=== PATIENT | male | born 1950 | race Caucasian/White ===

== ENCOUNTER 2016-08-14 21:31 | Emergency (ER) | payer OTHER, MEDICARE ==
[~2016-08-14] VITALS: Ht 182.9 cm; Wt 100.0 kg
[~2016-08-14 21:31] MED LIST: ARIC5TAB PO; LEVE500 PO; METF850T PO
[2016-08-14 21:45] VITALS: BP 142/87; PULSE 84; RESP 18; TEMP 98; O2SAT 97
[2016-08-14] MEDS ORDERED: SODIUM CHLORIDE 0.9% FLUSH 10 ML FLUSH IVF PRN (22:00)
[2016-08-14] MEDS ORDERED: DIPHTH/TETANUS/ACEL PERTUSSIS (BOOSTER) 0.5 ML VIAL/PFS IM ONE (22:00)
[2016-08-14] MEDS ORDERED: ceFAZolin 2 GM PREMIX 50 ML IV ONE (22:00)
[2016-08-14] MEDS ORDERED: LIDOCAINE HCL 1% PF 30 ML VIAL INFIL ONE (22:15)
[2016-08-14 22:31] LABS: AUTOMATED NEUTROPHIL # 4.2 TH/MM3 (1.8-7.7); BASOPHIL # 0.1 TH/MM3 (0-0.2); EOSINOPHIL # 0.2 TH/MM3 (0-0.4); EOSINOPHIL % 2.1 % (0.0-4.0); HEMATOCRIT 42.1 % (39.0-51.0); HEMO FLAGS DIFF FINAL; LYMPH % 38.5 % (9.0-44.0); LYMPHOCYTE # 3.2 TH/MM3 (1.0-4.8); MEAN CELL VOLUME 98.2 FL (80.0-100.0); MEAN CORPUSCULAR HGB CONC 35.6 % (32.0-36.0); MONO % 9.1 % (0.0-8.0); NEUT % 49.3 % (16.0-70.0); PLATELET COUNT 322 TH/MM3 (150-450); RED BLOOD COUNT 4.29 MIL/MM3 (4.50-5.90); RED CELL DISTRIBUTION WIDTH 14.4 % (11.6-17.2); WHITE BLOOD COUNT 8.4 TH/MM3 (4.0-11.0)
--- NOTE | 2016-08-14 22:38 | PD ---
HPI Chief Complaint: Head Injury Time Seen by Provider: 21:41 Travel History International Travel<30 days: No Contact w/Intl Traveler<30days: No Traveled to known affect area: No History of Present Illness HPI 66-year-old male came to the emergency room with history of fall after significant intoxication with his . called 911. There was some blood at the scene from his head injury when he fell. Patient was combative at the scene as well as during transportation. Unknown LOC. Patient is not giving any kind of reliable history given his intoxicated state. Vital signs were within acceptable range. He was brought in boarded and collared. FOR[facility]LY [facility] Past Medical History Narrative Medical List of his past medical, surgical, social and family history was reviewed from the nursing note. Dementia: Yes Diabetes: Yes Patient Takes Glucophage: No (UNKNOWN) Diminished Hearing: No Seizures: Yes Tetanus Vaccination: Unknown Influenza Vaccination: No Past Surgical History Surgical History: No Previous Surgery Social History Alcohol Use: Yes (A COUPLE OF GLASSES OF WINE DAILY) Tobacco Use: No Substance Use: No Allergies-Medications (Allergen,Severity, Reaction): Coded Allergies: No Known Allergies (Unverified , 08/18/16) Comments No known drug allergies. Reported Meds & Prescriptions Reported Meds & Active Scripts Active Bacitracin Topical 500 Unit/Gm Oint 1 Applic TOPICAL BID Narrative Medication List of his home medications reviewed from the nursing note. Review of Systems Except as stated in HPI: all other systems reviewed are Neg Physical Exam Narrative GENERAL: Significant intoxication, slurred speech, combative, boarded and collared SKIN: Focused skin assessment warm/dry. HEAD: Large hematoma with some venous oozing on the left parietal protuberance EYES: Pupils equal and round. No scleral icterus. No injection or drainage. ENT: No nasal bleeding or discharge. Mucous membranes pink and moist. NECK: Trachea midline. No JVD. CARDIOVASCULAR: Regular rate and rhythm. No murmur appreciated. RESPIRATORY: No accessory muscle use. Clear to auscultation. Breath sounds equal bilaterally. GASTROINTESTINAL: Abdomen soft, non-tender, nondistended. Hepatic and splenic margins not palpable. MUSCULOSKELETAL: No obvious deformities. No clubbing. No cyanosis. No edema. Patient was rolled off the backboard. No step-offs or contusions. NEUROLOGICAL: Significantly intoxicated. GCS of 14. No obvious cranial nerve deficits. Motor grossly within normal limits. Slurred speech. PSYCHIATRIC: Appropriate mood and affect; insight and judgment normal. Data Data Last Documented VS Vital Signs Date Time Temp Pulse Resp B/P Pulse Ox O2 Delivery O2 Flow Rate FiO2 08/15/16 02:14 78 18 135/80 99 Room Air 08/14/16 21:45 98.0 Orders Basic Metabolic Panel (Bmp) (08/14/16 21:53) Complete Blood Count With Diff (08/14/16 21:53) Prothrombin Time / Inr (Pt) (08/14/16 21:53) Act Partial Throm Time (Ptt) (08/14/16 21:53) Type And Screen (08/14/16 21:53) Alcohol (Ethanol) (08/14/16 21:53) Ct Brain W/O Iv Contrast(Rout) (08/14/16 21:53) Ct Cerv Spine W/O Contrast (08/14/16 21:53) Iv Access Insert/Monitor (08/14/16 21:53) Ecg Monitoring (08/14/16 21:53) Oximetry (08/14/16 21:53) Oxygen Administration (08/14/16 21:53) Cefazolin 2 Gm Premix (Ancef 2 Gm Premix (08/14/16 22:00) Ygji-Tos-Lmclbo (Booster) Inj (Boostrix (08/14/16 22:00) Sodium Chloride 0.9% Flush (Ns Flush) (08/14/16 22:00) Drug Screen, Random Urine (08/14/16 21:53) Lidocaine Pf 1% Inj (Xylocaine-Mpf 1% In (08/14/16 22:15) Electrocardiogram (08/14/16 21:45) Labs Laboratory Tests Test 08/14/16 08/14/16 22:05 23:15 White Blood Count 8.4 TH/MM3 Red Blood Count 4.29 MIL/MM3 Hemoglobin 15.0 GM/DL Hematocrit 42.1 % Mean Corpuscular Volume 98.2 FL Mean Corpuscular Hemoglobin 35.0 PG Mean Corpuscular Hemoglobin 35.6 % Concent Red Cell Distribution Width 14.4 % Platelet Count 322 TH/MM3 Mean Platelet Volume 7.8 FL Neutrophils (%) (Auto) 49.3 % Lymphocytes (%) (Auto) 38.5 % Monocytes (%) (Auto) 9.1 % Eosinophils (%) (Auto) 2.1 % Basophils (%) (Auto) 1.0 % Neutrophils # (Auto) 4.2 TH/MM3 Lymphocytes # (Auto) 3.2 TH/MM3 Monocytes # (Auto) 0.8 TH/MM3 Eosinophils # (Auto) 0.2 TH/MM3 Basophils # (Auto) 0.1 TH/MM3 CBC Comment DIFF FINAL Differential Comment Prothrombin Time 9.7 SEC Prothromb Time International 0.9 RATIO Ratio Activated Partial 28.6 SEC Thromboplast Time Sodium Level 139 MEQ/L Potassium Level 3.8 MEQ/L Chloride Level 102 MEQ/L Carbon Dioxide Level 23.2 MEQ/L Anion Gap 14 MEQ/L Blood Urea Nitrogen 15 MG/DL Creatinine 0.86 MG/DL Estimat Glomerular Filtration 89 ML/MIN Rate Random Glucose 128 MG/DL Calcium Level 9.0 MG/DL Ethyl Alcohol Level 286 MG/DL Blood Type O NEGATIVE Antibody Screen NEGATIVE Blood Bank Comment Urine Opiates Screen NEG Urine Barbiturates Screen NEG Urine Amphetamines Screen NEG Urine Benzodiazepines Screen NEG Urine Cocaine Screen NEG Urine Cannabinoids Screen NEG MDM Medical Decision Making Medical Screen Exam Complete: Yes Emergency Medical Condition: Yes Medical Record Reviewed: Yes Interpretation(s) Twelve-lead EKG was reviewed by me. Normal sinus rhythm, normal axis, nonspecific ST-T wave changes. Heart rate of 81 beats per minute. Differential Diagnosis Intracranial bleed, skull fracture, scalp laceration with contusion, acute alcohol intoxication Narrative Course 10:44 PM the scalp laceration was stapled by the PA. Please refer to his procedure note. Awaiting for the blood test results and the CAT scan to be done and resulted. 12:15 AM CAT scan reports of back and within normal limit. Blood alcohol level is very high. Patient will be here till he is clinically sober to be discharged home. Procedures EKG Prior to Arrival: No Diagnosis Primary Impression: Fall Qualified Code: W19.XXXA - Fall, initial encounter Additional Impressions: Acute alcohol intoxication Qualified Code: F10.929 - Acute alcohol intoxication, with unspecified complication Scalp laceration Qualified Code: S01.01XA - Scalp laceration, initial encounter Head injury Qualified Code: S09.90XA - Head injury, initial encounter Referrals: Primary Care Physician 3 days Additional Instructions: Please return to the ER or to your primary care to get the devika taken out in 5-7 days. Apply the antibiotic ointment on the scalp area until the devika come out. Keep the wound clean and dry for next 48 hours. Be careful when you brush her hair. Drink alcohol in moderation. Med/Other Pt SpecificInfo: Prescription(s) given Scripts Bacitracin Topical 500 Unit/Gm Oint1 Applic TOPICAL BID #30 GM Ref 0 Prov:Migue Johnson MD 08/15/16 Disposition: 01 DISCHARGE HOME Condition: Stable Miuge Johnson MD August 14, 2016 22:38 Migue Johnson MD August 14, 2016 22:38
[2016-08-14 22:43] VITALS: O2SAT 99
--- NOTE | 2016-08-14 22:44 | PD ---
Physical Exam Time Seen by Provider: 22:20 Data Data Last Documented VS Vital Signs Date Time Temp Pulse Resp B/P Pulse Ox O2 Delivery O2 Flow Rate FiO2 08/14/16 21:45 98.0 84 18 142/87 97 Orders Basic Metabolic Panel (Bmp) (08/14/16 21:53) Complete Blood Count With Diff (08/14/16 21:53) Prothrombin Time / Inr (Pt) (08/14/16 21:53) Act Partial Throm Time (Ptt) (08/14/16 21:53) Type And Screen (08/14/16 21:53) Alcohol (Ethanol) (08/14/16 21:53) Ct Brain W/O Iv Contrast(Rout) (08/14/16 21:53) Ct Cerv Spine W/O Contrast (08/14/16 21:53) Iv Access Insert/Monitor (08/14/16 21:53) Ecg Monitoring (08/14/16 21:53) Oximetry (08/14/16 21:53) Oxygen Administration (08/14/16 21:53) Cefazolin 2 Gm Premix (Ancef 2 Gm Premix (08/14/16 22:00) Wavw-Yzb-Prbgho (Booster) Inj (Boostrix (08/14/16 22:00) Sodium Chloride 0.9% Flush (Ns Flush) (08/14/16 22:00) Drug Screen, Random Urine (08/14/16 21:53) Lidocaine Pf 1% Inj (Xylocaine-Mpf 1% In (08/14/16 22:15) Labs Laboratory Tests Test 08/14/16 22:05 White Blood Count 8.4 TH/MM3 Red Blood Count 4.29 MIL/MM3 Hemoglobin 15.0 GM/DL Hematocrit 42.1 % Mean Corpuscular Volume 98.2 FL Mean Corpuscular Hemoglobin 35.0 PG Mean Corpuscular Hemoglobin 35.6 % Concent Red Cell Distribution Width 14.4 % Platelet Count 322 TH/MM3 Mean Platelet Volume 7.8 FL Neutrophils (%) (Auto) 49.3 % Lymphocytes (%) (Auto) 38.5 % Monocytes (%) (Auto) 9.1 % Eosinophils (%) (Auto) 2.1 % Basophils (%) (Auto) 1.0 % Neutrophils # (Auto) 4.2 TH/MM3 Lymphocytes # (Auto) 3.2 TH/MM3 Monocytes # (Auto) 0.8 TH/MM3 Eosinophils # (Auto) 0.2 TH/MM3 Basophils # (Auto) 0.1 TH/MM3 CBC Comment DIFF FINAL Differential Comment MDM Medical Record Reviewed: Yes Supervised Visit with EMANUEL: No Narrative Course The patient gives verbal consent for left parietal scalp laceration repair. Procedures Procedure Narrative LACERATION LOCATION: Left parietal scalp LENGTH: 2 cm NUMBER OF STITCHES/DEVIKA: 7 REPAIR: The area of the laceration was prepped with Betadine and sterilely draped. The laceration was infiltrated with 1% lidocaine with epinephrine. The wound was copiously irrigated and explored without evidence of foreign body , tendon injury or neurovascular injury. The wound was closed using devika. This was a single layer repair. A sterile dressing was applied. The patient was advised to keep the dressing clean and dry. Patient tolerated the procedure well. Morris Foster August 14, 2016 22:44
[2016-08-14 23:02] LABS: BICARBONATE 23.2 MEQ/L (21.0-32.0)
--- NOTE | 2016-08-14 23:05 | RADRPT ---
EXAM DATE/TIME: 08/14/2016 22:52 [facility] COMPARISON: No previous studies available for comparison. INDICATIONS : Found on floor after falling with a pool of blood behind back of head RADIATION DOSE: 45.50 CTDIvol (mGy) MEDICAL HISTORY : Seizures. Diabetes. SURGICAL HISTORY : None. ENCOUNTER: Initial ACUITY: 1 day PAIN SCALE: 3/10 LOCATION: cranial TECHNIQUE: Multiple contiguous axial images were obtained of the head. Using automated exposure control and adj ustment of the mA and/or kV according to patient size, radiation dose was kept as low as reasonably a chievable to obtain optimal diagnostic quality images. FINDINGS: CEREBRUM: The ventricles are normal for age. No evidence of midline shift, mass lesion, hemorrhage or acute in farction. No extra-axial fluid collections are seen. POSTERIOR FOSSA: The cerebellum and brainstem are intact. The 4th ventricle is midline. The cerebellopontine angle i s unremarkable. EXTRACRANIAL: The visualized portion of the orbits is intact. SKULL: The calvaria is intact. No evidence of skull fracture but there is marked soft tissue swelling in th e high left parietal region. CONCLUSION: Normal examination but there is marked soft tissue swelling in the high left parietal region. Estiven Chadwick MD on August 14, 2016 at 23:03 Board Certified Radiologist. This report was verified electronically.
[2016-08-14 23:08] VITALS: BP 143/83; PULSE 101; RESP 18; O2SAT 96
[2016-08-14 23:08] LABS: POTASSIUM 3.8 MEQ/L (3.5-5.1)
[2016-08-14 23:15] LABS: APTT (PATIENT) 28.6 SEC (24.3-30.1); INTERNATIONAL NORMALIZED RATIO 0.9 RATIO; PROTHROMBIN TIME - PATIENT 9.7 SEC (9.8-11.6)
--- NOTE | 2016-08-14 23:44 | RADRPT ---
EXAM DATE/TIME: 08/14/2016 22:52 [facility] COMPARISON: CT CERVICAL SPINE W/O CONTRAST, June 29, 2014, 18:29. INDICATIONS : Found on floor after falling with a pool of blood behind back of head. RADIATION DOSE: 19.08 CTDIvol (mGy) MEDICAL HISTORY : Seizures. Diabetes. SURGICAL HISTORY : None. ENCOUNTER: Initial ACUITY: 1 day PAIN SCALE: 3/10 LOCATION: neck TECHNIQUE: Volumetric scanning of the cervical spine was performed. Multiplanar reconstructions in the sagittal, coronal and oblique axial planes were performed. Using automated exposure control and adjustment o f the mA and/or kV according to patient size, radiation dose was kept as low as reasonably achievable to obtain optimal diagnostic quality images. FINDINGS: VERTEBRAE: Normal vertebral body height. ALIGNMENT: No evidence of subluxation. C2-C3: The bony spinal canal is normal in size. No evidence of disc bulge or herniation. The neural forami na are bilaterally patent. C3-C4: The bony spinal canal is normal in size. No evidence of disc bulge or herniation. The neural forami na are bilaterally patent. C4-C5: The bony spinal canal is normal in size. No evidence of disc bulge or herniation. The neural forami na are bilaterally patent. C5-C6: The bony spinal canal is normal in size. No evidence of disc bulge or herniation. The neural forami na are bilaterally patent. C6-C7: The bony spinal canal is normal in size. No evidence of disc bulge or herniation. The neural forami na are bilaterally patent. C7-T1: The bony spinal canal is normal in size. No evidence of disc bulge or herniation. The neural forami na are bilaterally patent. CONCLUSION: Normal examination. Estiven Chadwick MD on August 14, 2016 at 23:42 Board Certified Radiologist. This report was verified electronically.
[2016-08-14 23:49] LABS: AMPHETAMINE, URINE NEG (NEG); BARBITURATES, URINE NEG (NEG); COCAINE, URINE NEG (NEG)
[2016-08-15 02:14] VITALS: BP 135/80; PULSE 78; RESP 18; O2SAT 99
[2016-08-15] MEDS ORDERED: BACI500O9 TOPICAL (02:41)
--- NOTE | 2016-08-15 14:19 | EKG ---
Date Performed: 08/14/2016 Time Performed: 21:45:35 PTAGE: 66 years EKG: Sinus rhythm INCOMPLETE RIGHT BUNDLE BRANCH BLOCK Compared to prior tracing no significant change BORDERLINE ECG PREVIOUS TRACING : 10/08/2015 10.32 DOCTOR: Cesario Patino Interpretating Date/Time 08/15/2016 14:19:04
== END 2016-08-15 04:39 | disposition home or self-care (01) ==
LOC: NEPC 21:31
DX: S01.01XA Laceration without foreign body of scalp, initial encounter (principal); S09.90XA Unspecified injury of head, initial encounter; F10.929 Alcohol use, unspecified with intoxication, unspecified; R94.31 Abnormal electrocardiogram [ECG] [EKG]; E11.9 Type 2 diabetes mellitus without complications; F03.90 Unspecified dementia, unspecified severity, without behavioral disturbance, psychotic disturbance, mood disturbance, and anxiety; Z23 Encounter for immunization; Z86.69 Personal history of other diseases of the nervous system and sense organs; W19.XXXA Unspecified fall, initial encounter
CPT/HCPCS: 12001; 70450; 72125; 80048; 80307; 85025; 85610; 85730; 86850; 86900; 86901; 90471; 90715; 93005; 96374; 99285; J0690

== ENCOUNTER 2016-08-18 09:36 | Emergency (ER) | payer OTHER, MEDICARE ==
[~2016-08-18] VITALS: Ht 180.3 cm; Wt 87.7 kg
[~2016-08-18 09:36] MED LIST changes: +BACI500O9 TOPICAL
[2016-08-18 09:50] VITALS: BP 146/87; PULSE 70; RESP 15; TEMP 98.1; O2SAT 97
--- NOTE | 2016-08-18 10:59 | PD ---
HPI Chief Complaint: Wound/Suture/Staple Re-Check Time Seen by Provider: 10:06 Travel History International Travel<30 days: No Contact w/Intl Traveler<30days: No Traveled to known affect area: No History of Present Illness HPI 66yo M presents to the ED requesting staple removal. Pt was here on 08/14/16 and had a fall with alcohol intoxication. Pt had left parietal scalp laceration that was repaired with 7 devika. Denies any complaints including fever, headache, chest pain sob, n/v, abdominal pain, focal weakness or numbness. PFSH Past Medical History Dementia: Yes Diabetes: Yes Patient Takes Glucophage: No Diminished Hearing: No Seizures: Yes ?: Not Social History Alcohol Use: Yes (A COUPLE OF GLASSES OF WINE DAILY) Tobacco Use: No Substance Use: No Allergies-Medications (Allergen,Severity, Reaction): Coded Allergies: No Known Allergies (Unverified , 08/18/16) Reported Meds & Prescriptions Reported Meds & Active Scripts Active Bacitracin Topical 500 Unit/Gm Oint 1 Applic TOPICAL BID Review of Systems Except as stated in HPI: all other systems reviewed are Neg Physical Exam Narrative GENERAL: 66yo M not in distress. SKIN: Focused skin assessment warm/dry. HEAD: +7 devika in left parietal scalp. +Scab. Wound is well healed with no discharge. CARDIOVASCULAR: Regular rate and rhythm. No murmur appreciated. RESPIRATORY: No accessory muscle use. Clear to auscultation. Breath sounds equal bilaterally. GASTROINTESTINAL: Abdomen soft, non-tender, nondistended. Hepatic and splenic margins not palpable. MUSCULOSKELETAL: No obvious deformities. No clubbing. No cyanosis. No edema. NEUROLOGICAL: Awake and alert. No obvious cranial nerve deficits. Motor grossly within normal limits. Normal speech. PSYCHIATRIC: Appropriate mood and affect; insight and judgment normal. Data Data Last Documented VS Vital Signs Date Time Temp Pulse Resp B/P Pulse Ox O2 Delivery O2 Flow Rate FiO2 08/18/16 09:50 98.1 70 15 146/87 97 MDM Medical Decision Making Medical Screen Exam Complete: Yes Emergency Medical Condition: Yes Differential Diagnosis Staple removal Narrative Course 66yo M with scalp laceration repair on 08/14/16 here for staple removal. Informed pt that he is about 1 day early but pt insist on removing the devika. Wound looks well healed and devika removed by tech. No complications. Denies any pain, or fever. Return precautions given. Diagnosis Primary Impression: Removal of devika Patient Instructions: General Instructions Departure Forms: Tests/Procedures Additional Instructions: Please follow up with your PMD in 3-7 days. Return to the ED if symptoms worsen. Med/Other Pt SpecificInfo: No Change to Meds Disposition: 01 DISCHARGE HOME Condition: Stable Harriet Vitale DO August 18, 2016 10:58
== END 2016-08-18 11:03 | disposition home or self-care (01) ==
LOC: PHEFT 09:36
DX: S01.01XD Laceration without foreign body of scalp, subsequent encounter (principal); F03.90 Unspecified dementia, unspecified severity, without behavioral disturbance, psychotic disturbance, mood disturbance, and anxiety; E11.9 Type 2 diabetes mellitus without complications; Z86.69 Personal history of other diseases of the nervous system and sense organs; Z48.02 Encounter for removal of sutures; X58.XXXD Exposure to other specified factors, subsequent encounter
CPT/HCPCS: 99281